=== PATIENT | male | born 2000 | race African-American/Black ===

== ENCOUNTER 2024-12-14 19:43 | Emergency (ER) | payer SELFPAY ==
[~2024-12-14] VITALS: Ht 185.4 cm; Wt 77.0 kg
[2024-12-14 19:54] VITALS: O2SAT 100
[2024-12-14 20:16] VITALS: TEMP 36.9; O2SAT 100
[2024-12-14] MEDS: METOCLOPRAMIDE HCL 10MG/2ML VIAL IM ONE (21:46)
[2024-12-14] MEDS ORDERED: AMOX-494 MT (23:05)
[2024-12-14] MEDS ORDERED: IBUP-1455 MT (23:05)
[2024-12-14 23:17] VITALS: BP 129/89; PULSE 89; RESP 16
[2024-12-14] MEDS: KETOROLAC 30MG/ML VIAL IM ONE (23:17)
== END 2024-12-14 23:55 | disposition home or self-care (01) ==
LOC: ER 19:43
DX: J01.90 Acute sinusitis, unspecified (principal); R51.9 Headache, unspecified
CPT/HCPCS: 99285; 70450; 96372; J1885; J2765